=== PATIENT | male | born 1975 | race Caucasian/White ===

== ENCOUNTER → 2022-04-11 13:48 | Outpatient (BNVA) | payer SELFPAY | PROVIDERS: Family Provider Nurse Practitioner; PCP Nurse Practitioner; Referring Provider Dermatology; Visit Provider Podiatrist Foot & Ankle Surgery | DX: M79.672 Pain in left foot (principal) | CPT/HCPCS: 73630 ==

== ENCOUNTER 2022-08-26 19:24 | Observation (INO) | payer SELFPAY ==
[2022-08-26 19:40] VITALS: BP 124/75; PULSE 114; RESP 19; TEMP 37.4; O2SAT 98; BMI 32.5
--- NOTE | 2022-08-26 20:11 | USR_ITS ---
PROCEDURE INFORMATION: Exam: US Duplex Left Lower Extremity Veins, Limited Exam date and time: 08/26/2022 8:30 PM Age: 46 years old Clinical indication: Swelling (edema) of limb; Lower extremity, left; Patient HX: 1 week with leg swelling and pain; Additional info: Redness, swelling left leg with calf pain TECHNIQUE: Imaging protocol: Real-time Duplex ultrasound of the Left Lower Extremity with 2-D olivas scale, color Doppler flow and spectral waveform analysis with image documentation. Limited exam focused on the left lower extremity veins. COMPARISON: CR XR foot LT min 3V* [id number] 04/11/2022 1:48 PM FINDINGS: Left deep veins: Deep venous thrombosis is seen in the left superficial femoral vein, popliteal vein and peroneal trunk Left superficial veins: Unremarkable. Saphenofemoral junction is patent without thrombus. Soft tissues: Unremarkable. US/[place] [id number] IMPRESSION: Deep venous thrombosis is seen in the left superficial femoral vein, popliteal vein and peroneal trunk
--- NOTE | 2022-08-26 20:47 | CTR_ITS ---
PROCEDURE INFORMATION: Exam: CTA Chest With Contrast Exam date and time: 08/26/2022 9:39 PM Age: 46 years old Clinical indication: Shortness of breath; Additional info: Positive for lower ext dvt, chest pain TECHNIQUE: Imaging protocol: Computed tomographic angiography of the chest with contrast. 3D rendering (Not supervised by radiologist): MIP and/or 3D reconstructed images were created by the technologist. Radiation optimization: All CT scans at this facility use at least one of these dose optimization techniques: automated exposure control; mA and/or kV adjustment per patient size (includes targeted exams where dose is matched to clinical indication); or iterative reconstruction. Contrast material: OMNIPAQUE 350; Contrast volume: 451.03 ml; Contrast route: INTRAVENOUS (IV); COMPARISON: No relevant prior studies available. RADIATION DOSE METRICS: Total DLP (mGy-cm): 451.03 FINDINGS: Pulmonary arteries: Multiple bilateral pulmonary emboli with a degree of right heart strain given an RV to LV ratio of 1.1. Aorta: Unremarkable. No aortic aneurysm. No aortic dissection. Lungs: Patchy bilateral subsegmental dependent atelectasis versus minimal infiltrate. Pleural spaces: Unremarkable. No pneumothorax. No pleural effusion. Heart: See Pulmonary arteries finding. Lymph nodes: Multiple prominent subcentimeter mediastinal lymph nodes, nonspecific. Bones/joints: Unremarkable. No acute fracture. Soft tissues: Unremarkable. CT/CT angio chest PE protcl [id number] IMPRESSION: 1. Multiple bilateral pulmonary emboli with a degree of right heart strain given an RV to LV ratio of 1.1. 2. Patchy bilateral subsegmental dependent atelectasis versus minimal infiltrate. 3. Multiple prominent subcentimeter mediastinal lymph nodes, nonspecific.
--- NOTE | 2022-08-26 21:07 | ECG_ITS ---
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 Measurements Intervals [place] Rate: 99 P: 71 AR: 134 QRS: 49 QRSD: 90 T: 71 QT: 293 QTc: 377 Interpretive Statements SINUS RHYTHM POSSIBLE ANTERIOR MYOCARDIAL INFARCTION , OF INDETERMINATE AGE [30 ms Q WAVE IN V3/V4, OR R < 0.2 mV IN V4] INTERPRETATION BASED ON A DEFAULT AGE OF 40 YEARS No previous ECG available for comparison Electronically Signed On 08-26-2022 21:41:27 CDT by Leeann Roman M.D. [id number]
[2022-08-26 21:13] VITALS: BP 128/74; PULSE 104; RESP 15; O2SAT 97
[2022-08-26 21:20] LABS: Basophils # 0.1 10^3/uL (0.0-0.1); Basophils % 0.6 %; Eosinophils # 0.1 10^3/uL (0.0-0.8); Hematocrit 47.4 % (42.0-52.0); Hemoglobin 15.8 g/dL (11.7-16.6); Lymphocytes # 1.3 10^3/uL (0.8-4.8); Lymphocytes % 15.4 %; Mean Corpuscular HGB Conc 33.3 g/dL (30.0-36.0); Mean Corpuscular Hemoglobin 28.8 pg (28.0-34.0); Mean Corpuscular Volume 86.3 fl (80-94); Mean Platelet Volume 9.7 fL (7.4-10.4); Monocytes # 1.4 10^3/uL (0.2-0.9); Monocytes % 16.8 %; Neutrophils # 5.48 10^3/uL (1.8-7.7); Nucleated Red Blood Cells % 0 %; Platelet Count 239 10^3/cmm (130-400); Red Blood Count 5.49 10^6/uL (4.1-5.3); Red Cell Distribution Width 12.5 % (12.1-15.1); White Blood Count 8.3 10^3/uL (4.0-10.0)
[2022-08-26 21:34] LABS: INR 0.99 (0.8-1.2)
[2022-08-26 21:35] LABS: Partial Thromboplastin Time 26.7 SECONDS (23.9-36.7)
[2022-08-26] MEDS: iohexol 350 mg/mL 100 mL Btl IV (21:37)
[2022-08-26 21:41] LABS: Alanine Aminotransferase 39 U/L (0-41); Albumin Level 3.8 g/dL (3.5-5.2); Alkaline Phosphatase 89 U/L (40-130); Anion Gap 16.3 (5-19); Aspartate Amino Transferase 27 U/L (0-40); Blood Urea Nitrogen 15 mg/dL (6-20); C Reactive Protein 57.7 mg/L (0.0-4.9); Calcium 8.9 mg/dL (8.5-10.5); Carbon Dioxide 25 mmol/L (22-29); Chloride 97 mmol/L (98-107); Glomerular Filtration Rate 65.5 mL/min (90-130); Glucose 95 mg/dL (65-115); Osmolality Calculated 279 mOsm/kg (285-295); Potassium 4.3 mmol/L (3.5-5.1); Sodium 134 mmol/L (136-145); Total Bilirubin 0.4 mg/dL (0.15-1.2); Total Protein 7.8 g/dL (6.6-8.7)
[2022-08-26 21:42] LABS: Troponin(5th) Baseline 9 ng/L (0-15)
--- NOTE | 2022-08-26 22:16 | W.ED.EXTPRO ---
HPI - Extremity Problem General: Chief complaint: Extremity Problem,Nontraumatic Stated complaint: Fever, Left leg pain Time Seen by Provider: 08/26/22 21:09 History of Present Illness: 46-year-old male presenting today with left lower extremity pain and edema. Patient notes onset of symptoms 3 days ago. Symptoms are getting gradually worse. Began to have chest pain today. Chest pain is worse with deep inspiration. Not on blood thinners. No prior history of pulmonary embolism. No recent travel recent surgeries. No recent illnesses. He denies fevers or chills. He denies nausea or vomiting. He takes no medications. Review of Systems General: Reports: 10 or more systems reviewed and unremarkable except in HPI and below PFSH ED PFSH: Social History Smoking and tobacco status: current every day smoker Physical Exam Const: COMMON NORMALS: no acute distress, patient oriented x3 and alert GENERAL APPEARANCE: cooperative ORIENTATION/CONSCIOUSNESS: Yes awake, Yes oriented to person, Yes oriented to place and Yes oriented to time HENMT: COMMON NORMALS: normocephalic, atraumatic, external ears normal, Normal external nose present and moist oral mucous membranes HEAD & SCALP: normal to inspection, normocephalic and atraumatic NOSE: Normal external nose present GENERAL EAR: hearing grossly impaired EXTERNAL EAR: Yes external ears normal Eye: COMMON NORMALS: Equal, round and reactive pupils present, EOMs intact bilaterally, conjunctivae normal and no scleral icterus GENERAL EYE: appearance normal, both eyes and all related structures EYELID: eyelids normal CONJUNCTIVA: Yes conjunctivae normal SCLERA: sclerae normal PUPIL: Yes Equal, round and reactive pupils present Neck/C-Spine: COMMON NORMALS: full ROM, supple and no JVD GENERAL: Yes normal visual inspection Lymph: LYMPHATIC: no lymphadenopathy noted and no lymphedema noted Chest: COMMONS NORMALS: normal inspection of the chest Resp: COMMON NORMALS: normal respiratory effort, No retractions and No use of accessory muscles Cardio: COMMON NORMALS: no JVD, regular rate and regular rhythm RATE: regular rate RHYTHM: regular rhythm GI: COMMON NORMALS: Normal to inspection, nondistended, normoactive bowel sounds present : COMMON NORMALS: Yes no CVA tenderness BLADDER/KIDNEY EXAM: Yes no CVA tenderness Back/Pelvis: COMMON NORMALS: no CVA tenderness and thoracic and lumbar spine normal to inspection Extremity: COMMON NORMALS: normal to inspection, full ROM and capillary refill normal GENERAL: Yes normal exam except as noted Neuro: COMMON NORMALS: patient oriented x3, CN's II-XII intact bilaterally, moves all extremities, no focal motor deficits, no sensory deficits noted and gait normal SENSORIUM/ORIENTATION: Yes alert, Yes oriented to person, Yes oriented to place and Yes oriented to time Psych: COMMON NORMALS: mental status grossly normal, Normal thought process present, cooperative and normal affect THOUGHT PROCESS: Normal thought process present Skin: COMMON NORMALS: no rashes or lesions noted and no wounds GENERAL SKIN EXAM: no rashes or lesions noted Course Vital Signs: Vital signs: Vital Signs Temperature 99.4 F 08/26/22 19:40 Pulse Rate 104 H 08/26/22 21:13 Respiratory Rate 15 08/26/22 21:13 Blood Pressure 128/74 08/26/22 21:13 Pulse Oximetry 97 08/26/22 21:13 Oxygen Delivery Me thod 08/26/22 19:40 MDM - Extremity (Nontraumatic) Medical Decision Making 46-year-old male presenting today with lower extremity pain and swelling. Evidence of DVT. Proceed with CTA which demonstrates bilateral pulmonary embolisms with mild ventricular heart strain. Patient started on heparin. Will admit to the hospital. Lab Data : 08/26/22 21:15 08/26/22 21:15 Radiology Impressions Venous Duplex 08/26/22 20:11 IMPRESSION: Deep venous thrombosis is seen in the left superficial femoral vein, popliteal vein and peroneal trunk ADDENDUM: 08/26/222115 THIS REPORT CONTAINS FINDINGS THAT MAY BE CRITICAL TO PATIENT CARE. The findings were verbally communicated via telephone conference with RANDY NUNEZ at 9:14 PM CDT on 08/26/2022. The findings were acknowledged and understood. Chest CTA 08/26/22 20:47 IMPRESSION: 1. Multiple bilateral pulmonary emboli with a degree of right heart strain given an RV to LV ratio of 1.1. 2. Patchy bilateral subsegmental dependent atelectasis versus minimal infiltrate. 3. Multiple prominent subcentimeter mediastinal lymph nodes, nonspecific. Laboratory Results WBC 8.3 10^3/uL (4.0-10.0) 08/26/22 21:15 RBC 5.49 10^6/uL (4.1-5.3) H 08/26/22 21:15 Hgb 15.8 g/dL (11.7-16.6) 08/26/22 21:15 Hct 47.4 % (42.0-52.0) 08/26/22 21:15 MCV 86.3 fl (80-94) 08/26/22 21:15 MCH 28.8 pg (28.0-34.0) 08/26/22 21:15 MCHC 33.3 g/dL (30.0-36.0) 08/26/22 21:15 RDW 12.5 % (12.1-15.1) 08/26/22 21:15 Plt Count 239 10^3/cmm (130-400) 08/26/22 21:15 MPV 9.7 fL (7.4-10.4) 08/26/22 21:15 Neut % (Auto) 66.0 % 08/26/22 21:15 Lymph % (Auto) 15.4 % 08/26/22 21:15 Blount % (Auto) 16.8 % 08/26/22 21:15 Eos % (Auto) 1.0 % 08/26/22 21:15 Baso % (Auto) 0.6 % 08/26/22 21:15 Neut # (Auto) 5.48 10^3/uL (1.8-7.7) 08/26/22 21:15 Lymph # (Auto) 1.3 10^3/uL (0.8-4.8) 08/26/22 21:15 Blount # (Auto) 1.4 10^3/uL (0.2-0.9) H 08/26/22 21:15 Eos # (Auto) 0.1 10^3/uL (0.0-0.8) 08/26/22 21:15 Baso # (Auto) 0.1 10^3/uL (0.0-0.1) 08/26/22 21:15 Nucleated RBC % (auto) 0 % 08/26/22 21:15 Nucleated RBCs # 0.0 /100WBC 08/26/22 21:15 PT 13.40 SECONDS (12.1-14.9) 08/26/22 21:15 INR 0.99 (0.8-1.2) 08/26/22 21:15 APTT 26.7 SECONDS (23.9-36.7) 08/26/22 21:15 Sodium 134 mmol/L (136-145) L 08/26/22 21:15 Potassium 4.3 mmol/L (3.5-5.1) 08/26/22 21:15 Chloride 97 mmol/L (98-107) L 08/26/22 21:15 Carbon Dioxide 25 mmol/L (22-29) 08/26/22 21:15 Anion Gap 16.3 (5-19) 08/26/22 21:15 BUN 15 mg/dL (6-20) 08/26/22 21:15 Creatinine 1.2 mg/dL (0.7-1.2) 08/26/22 21:15 GFR Calculation 65.5 mL/min (90-130) L 08/26/22 21:15 Glucose 95 mg/dL (65-115) 08/26/22 21:15 Calculated Osmolality 279 mOsm/kg (285-295) L 08/26/22 21:15 Calcium 8.9 mg/dL (8.5-10.5) 08/26/22 21:15 Total Bilirubin 0.4 mg/dL (0.15-1.2) 08/26/22 21:15 AST 27 U/L (0-40) 08/26/22 21:15 ALT 39 U/L (0-41) 08/26/22 21:15 Alkaline Phosphatase 89 U/L (40-130) 08/26/22 21:15 Troponin T Baseline 9 ng/L (0-15) 08/26/22 21:15 C-Reactive Protein 57.7 mg/L (0.0-4.9) H 08/26/22 21:15 Total Protein 7.8 g/dL (6.6-8.7) 08/26/22 21:15 Albumin 3.8 g/dL (3.5-5.2) 08/26/22 21:15 Globulin 4.0 g/dL (1.3-4.6) 08/26/22 21:15 Discharge Plan Discharge Patient Disposition: Admitted As Inpatient Clinical Impression: Pulmonary embolism, DVT (deep venous thrombosis) Condition: Stable Prescriptions: No Action No Known Home Medications Referrals: Ana Paula,Glennette R, PUSH BUTTON SWITCH ASSEMBLER-C [Primary Care Provider] - Coding Level of Care Code ED Store Operations Associate for Pedro Luis Mckeon
--- NOTE | 2022-08-26 22:32 | P.HP_ITS ---
Providers/Chief Complaint Primary Care Provider: SLOANE HoustonC Chief Complaint: Fever, Left leg pain History of Present Illness Very pleasant 46-year-old gentleman without significant past history apart from Planter fasciitis a while back, presented due to having some swelling, discomfort in his left lower extremity that was progressing up towards the thigh, and also some chest discomfort, cough, dyspnea, palpitations, and was starting to feel overall more unwell, came in for evaluation. In ER with sinus tachycardia 105 bpm, saturating well on room air, blood pressure 120/74, he is found to have DVT in left superficial femoral, popliteal and peroneal trunk of left lower extremity. CTA chest with multiple bilateral PE with a degree of right heart strain suggested by CT imaging RV to LV ratio 1.1. Patchy bilateral subsegmental dependent Diane versus minimal infiltrate. Multiple prominent subcentimeter mediastinal lymph nodes, nonspecific. He is started on heparin drip. Review of Systems Const: Reports: malaise; Denies: body aches Eyes: Denies: change in vision, eye discomfort or eye redness ENMT: Denies: throat pain, oral sores or ear or mastoid pain Card: Denies: chest pain, edema, pre-syncope or dyspnea on exertion Resp: Reports: dyspnea, non-productive cough and pain on inspiration; Denies: productive cough or change in phlegm color GI: Denies: abdominal pain, nausea, vomiting, diarrhea, constipation, hematochezia or melena : Denies: flank pain, difficulty urinating, urinary frequency or hematuria Musc: Reports: extremity pain and extremity swelling; Denies: back pain, joint swelling or joint redness Skin/Breast: Denies: rash or new lesions Neuro: Denies: headache(s), numbness in extremities, weakness in extremities, dizziness, confusion or seizure-like activity Endo: Denies: polyuria or polydipsia Porfirio/Lymph: Denies: easy bleeding or tender lymph nodes All/Imm: Denies: urticaria or tongue swelling Medications/Allergies Home Medications Medication Instructions Recorded Confirmed Last Taken Type No Known Home Medications 04/11/22 05/23/22 Unknown History Allergies Allergy/AdvReac Type Severity Reaction Status Date / Time No Known Allergies Allergy Verified 05/23/22 14:32 PFSH Acute PFSH: Medical History Plantar fasciitis Smoking addiction Surgical History No history of previous surgery Family History Father Diabetes Mother Thyroid disease Social History Smoking and tobacco status: current every day smoker cigarettes Packs smoked per day: 1 Alcohol intake: never Substance/Drug Use: never Lives independently: Yes Marital status: Single Current occupational status: employed Vitals/I&O/Wt Last Vital Signs Temp 99.4 F 08/26/22 19:40 Pulse 104 H 08/26/22 21:13 Resp 15 08/26/22 21:13 BP 128/74 08/26/22 21:13 Pulse Ox 97 08/26/22 21:13 O2 Del Method 08/26/22 19:40 Weight last 48 hrs Weight 105.687 kg Physical Exam Narrative: Accompanied by family. Const: COMMON NORMALS: patient oriented x3 and alert GENERAL APPEARANCE: cooperative ORIENTATION/CONSCIOUSNESS: Yes awake HENMT: COMMON NORMALS: oropharynx normal Neck/C-Spine: COMMON NORMALS: no JVD Resp: COMMON NORMALS: normal respiratory effort and clear to auscultation bilaterally AUSCULTATION: clear to auscultation bilaterally Cardio: COMMON NORMALS: no JVD, regular rhythm, S1 normal heart sound present, S2 normal heart sound present and No murmurs present (Cardio) RHYTHM: regular rhythm HEART SOUNDS: S1 normal heart sound present and S2 normal heart sound present GI: COMMON NORMALS: Normal to inspection, nondistended, normoactive bowel sounds present, Soft to palpation and non-tender PALPATION: Yes Soft to palpation Extremity: COMMON NORMALS: no joint enlargement and no pedal edema Neuro: COMMON NORMALS: patient oriented x3 and moves all extremities SENSORIUM/ORIENTATION: Yes alert Skin: COMMON NORMALS: no rashes or lesions noted GENERAL SKIN EXAM: no rashes or lesions noted Data : 08/26/22 21:15 08/26/22 21:15 A&P Assessment and plan (1) Pulmonary embolism: New DVT, PE, without prior history, without obvious provoking factor. Reports some low-grade temp, noted 99.4 Fahrenheit in ER, on review of CT noted patchy bilateral subsegmental dependent [place] versus minimal infiltrate. Will test for COVID-19. Otherwise no recent immobilization, travel, surgical procedures. No personal or known family history of blood clots, although he is not sure whether his father who has had multiple health issues may have at some point had a clot. He is a smoker and we discussed with him benefit of cessation. Otherwise would benefit from follow-up with hematology on an urgent basis. Currently he is started on heparin drip, continue. Assess TTE Transition to oral anticoagulant at discharge. (2) DVT (deep venous thrombosis): As above (3) Smoking addiction: Discussed with him smoking cessation, especially with noted new otherwise unprovoked blood clots. Nicotine replacement while here. Continue to encourage cessation. Plan States does not have PCP, will request case management to also assist him with finding 1 for follow-up. Attestations Medical Necessity Statement*: Place in observation for assessment of management of new DVT and PE without obvious provoking factor, with possible right heart strain noted by CT, initiation of anticoagulation. Coding Level of Care Code Acute Drive In Theater Attendant for Pedro Luis Mckeon Diagnoses Pulmonary embolism I26.99 DVT (deep venous thrombosis) I82.409 Smoking addiction F17.200
--- NOTE | 2022-08-26 22:56 | ECG_ITS ---
[facility] Test Date: 2022-08-26 Pat Name: Gabo Borjas Department: Room: 262 Gender: Male Hydrology Technician: : 1975 Requested By: Panchito Matson Order Number: [id number] Collado MD: Leeann Roman M.D. Measurements Intervals [place] Rate: 99 P: 65 CO: 126 QRS: 44 QRSD: 90 T: 68 QT: 301 QTc: 386 Interpretive Statements SINUS RHYTHM POSSIBLE ANTERIOR MYOCARDIAL INFARCTION , OF INDETERMINATE AGE [30 ms Q WAVE IN V3/V4, OR R < 0.2 mV IN V4] Compared to ECG 08/26/2022 21:07:19 No significant changes Electronically Signed On 08-27-2022 23:09:45 CDT by Leeann Roman M.D. [id number]
[2022-08-26] MEDS: heparin drip 25,000 UNIT/500 ML PREMIX 29 UNIT IV (23:17)
[2022-08-26 23:30] VITALS: BP 114/60; PULSE 102; RESP 26; O2SAT 97
[2022-08-26 23:48] VITALS: BP 114/60; PULSE 102; RESP 26; O2SAT 97
[2022-08-26 23:50] LABS: SARS Covid-2 Antigen negative (Negative)
[2022-08-26 23:53] LABS: Troponin 5 2HR 14.04 ng/L (0-15)
[2022-08-27] VITALS (10 sets, daily range): BP systolic 111–145; BP diastolic 70–81; PULSE 71–107; RESP 16–18; TEMP 36.7–38.4; O2SAT 95–98; BMI 32.5
[2022-08-27 00:03] LABS: Troponin 5 2HR Delta 5.04 ABS# (0-10)
--- NOTE | 2022-08-27 00:09 | USCV_ITS ---
Gabo Borjas Age: 46 Gender: M : 1975 Exam Date: 08/27/2022 00:43 Ordering Phys: Clif Milan MD Technologist: Alma Goetz Exam Location: [facility] [place] Indication: Question of Rt heart strain post dx of PE BP: 128 / 76 HR: 109 Rhythm: Sinus Technical Quality: Adequate MEASUREMENTS (Male / Female) Normal Values 2D ECHO LV Diastolic Diameter PLAX 3.2 cm 4.2 - 5.9 / 3.9 - 5.3 cm LV Systolic Diameter PLAX 1.9 cm LV Chamber Size 2.6 cm IVS Diastolic Thickness 1.0 cm 0.6 - 1.0 / 0.6 - 0.9 cm IVS Systolic Thickness 1.8 cm LVPW Diastolic Thickness 1.2 cm 0.6 - 1.0 / 0.6 - 0.9 cm LVPW Systolic Thickness 1.5 cm RV Chamber Size 3.6 cm LVOT Diameter 2.0 cm LV Ejection Fraction 2D Teich 73.0 % LV Ejection Fraction MOD 2C 57.0 % LV Ejection Fraction 2C AL 58.2 % LA Diameter 3.2 cm LA Width 3.4 cm LA Height 3.4 cm RA Width 3.0 cm RA Height 4.2 cm Aorta at Sinotubular Diameter 2.7 cm IVC Diameter 2.3 cm M-MODE Aortic Annulus Diameter 3.4 cm LA Ao Ratio MM 1.1 MV E Point Septal Separation 0.2 cm DOPPLER AV Peak Velocity 154.0 cm/s LVOT Peak Velocity 139.0 cm/s AV Area Cont Eq vti 3.3 cm squared AV Area Cont Eq pk 2.8 cm squared MV Area PHT 4.3 cm squared Mitral E to A Ratio 1.2 MV E' Velocity 45.5 cm/s Mitral E to MV E' Ratio 6.3 Mitral E to LV E' Lateral Ratio 6.0 Mitral E to LV E' Septal Ratio 6.5 TR Peak Velocity 211.5 cm/s TR Peak Gradient 17.9 mmHg TR Mean Velocity 160.5 cm/s TR Mean Gradient 11.0 mmHg TR Velocity Time Integral 40.7 cm TV Peak E Velocity 72.0 cm/s RV Acceleration Time 0.2 s RV Ejection Time 0.3 s RV AcT/ET 0.5 FINDINGS Left Ventricle Normal left ventricular size, systolic function and wall thickness, with no regional wall motion abnormalities. Left ventricular ejection fraction is estimated at 70 %. Normal diastolic function. Right Ventricle Normal right ventricular size and systolic function. Right ventricular systolic pressure 20 mmHg. Right Atrium Normal right atrial size. Left Atrium Normal left atrial size. Mitral Valve Structurally normal mitral valve. No mitral valve stenosis. Trace mitral valve regurgitation. Aortic Valve Structurally normal trileaflet aortic valve. No aortic valve stenosis. No aortic valve regurgitation. Tricuspid Valve Structurally normal tricuspid valve. No tricuspid valve stenosis. Trace tricuspid valve regurgitation. Pulmonic Valve Pulmonic valve not well visualized. No pulmonary valve stenosis. Trace pulmonary valve regurgitation. Pericardium No pericardial effusion. Aorta Normal size aortic root and proximal ascending aorta. IVC Normal IVC dimension with >50% respiratory change of the inferior vena cava. CONCLUSIONS 1. Normal left ventricular size, systolic function and wall thickness, with no regional wall motion abnormalities. Left ventricular ejection fraction is estimated at 70 %. Normal diastolic function. 2. Normal right ventricular size and systolic function. 3. No significant valvular abnormality. 4. No prior similar studies to compare. Leeann Roman MD (Electronically Signed) Final Date: 27 August 2022 13:08 S
[2022-08-27] MEDS: acetaminophen 325 mg Tablet 650 MG PO ×2 (00:18→18:41)
[2022-08-27 03:18] LABS: Basophils % 0.5 %; Eosinophils # 0.1 10^3/uL (0.0-0.8); Eosinophils % 1.1 %; Hemoglobin 14.7 g/dL (11.7-16.6); Lymphocytes # 1.8 10^3/uL (0.8-4.8); Lymphocytes % 24.6 %; Mean Corpuscular HGB Conc 32.7 g/dL (30.0-36.0); Mean Corpuscular Hemoglobin 28.1 pg (28.0-34.0); Mean Corpuscular Volume 85.9 fl (80-94); Mean Platelet Volume 9.7 fL (7.4-10.4); Monocytes # 1.2 10^3/uL (0.2-0.9); Monocytes % 15.8 %; Neutrophils # 4.22 10^3/uL (1.8-7.7); Neutrophils % 57.7 %; Nucleated Red Blood Cells % 0 %; Platelet Count 222 10^3/cmm (130-400); Red Blood Count 5.24 10^6/uL (4.1-5.3); Red Cell Distribution Width 12.6 % (12.1-15.1); White Blood Count 7.3 10^3/uL (4.0-10.0)
[2022-08-27 03:39] LABS: Alanine Aminotransferase 36 U/L (0-41); Albumin Level 3.5 g/dL (3.5-5.2); Alkaline Phosphatase 82 U/L (40-130); Anion Gap 11.6 (5-19); Aspartate Amino Transferase 26 U/L (0-40); Blood Urea Nitrogen 15 mg/dL (6-20); Calcium 8.7 mg/dL (8.5-10.5); Carbon Dioxide 25 mmol/L (22-29); Chloride 99 mmol/L (98-107); Globulin 3.2 g/dL (1.3-4.6); Glomerular Filtration Rate 80.8 mL/min (90-130); Glucose 105 mg/dL (65-115); Osmolality Calculated 275 mOsm/kg (285-295); Potassium 3.6 mmol/L (3.5-5.1); Sodium 132 mmol/L (136-145); Total Bilirubin 0.2 mg/dL (0.15-1.2); Total Protein 6.7 g/dL (6.6-8.7)
[2022-08-27 03:44] LABS: Troponin 5 6HR 8.92 ng/L (0-15)
[2022-08-27 04:03] LABS: Troponin 5 6HR Delta -0.08 ng/L (0-12)
[2022-08-27 05:34] LABS: Partial Thromboplastin Time 36.6 SECONDS (23.9-36.7)
[2022-08-27] MEDS: heparin 5,000 unit/mL INJ 1 mL IV ×3 (06:03→18:46)
--- NOTE | 2022-08-27 10:45 | PC.CHAP ---
Pastoral Care Encounter/Spiritual Assessment Type of Contact [] Declined account management specialist visit [] Patient/Family/Request visit [] Outpatient visit [] Follow-up visit [] Physician referral [] Code/Alert [x] Routine visit [] Staff referral [] Actively dying [] Patient sleeping [] Family support [] [] Out of room [] Palliative care [] [] Receiving care in room [] Pre-surgical visit [] Trauma [] Long length of stay [] ICU visit [] Other: Relational/Emotional Strength [x] Patient feels connected with others/family/visitors/staff [] Distress [] Loneliness/isolation [] Abandonment Spirituality of Patient [x] Person of Loyda [x] Attends Pentecostal of their [place]oyda [x] Believes in Prayer [] Reads Bible or Moravian materials [] There are Spiritual issues to be addressed Glost Kiln Operator Interventions [x] Prayer [x] Active listening [x] Non-anxious presence [x] Spiritual/emotional support [] Crisis/trauma care [] Spiritual counseling [] Bereavement support [] Provided bereavement packet [] Provided Bible/devotional materials [] Provided toy/stuffed animal, coloring book to patient or family member [] Provided Communion [] Anointing/[place] [] Salvation [x] Completed spiritual assessment [] Other: Impact on Illness or Injury [] Angry [] Fearful [] Anxious [] Often cries [] Exhaustion [] Unable to work [] Unable to attend methodist [] Unable to walk/stand [] Unable to read [] Unable to drive [] Unable to eat/drink [] Unable to sleep [] Unable to be with family [] Patient intubated [] Other: Summary Time spent with patient 10 min
[2022-08-27 12:32] LABS: Partial Thromboplastin Time 41.2 SECONDS (23.9-36.7)
--- NOTE | 2022-08-27 14:03 | P.PN_ITS ---
Subjective Subjective: Patient on heparin drip at this time. Denies any recent weight loss, long road trips or long flight. Denies family history of cancers or coagulopathy. Still has some shortness of breath on ambulation. On room air at this time. Vitals/I&O/Wt Last Vital Signs Temp 98.1 F 08/27/22 12:00 Pulse 91 08/27/22 12:00 Resp 16 08/27/22 12:00 BP 117/72 08/27/22 12:00 Pulse Ox 96 08/27/22 12:00 O2 Del Method 08/27/22 08:28 08/26/22 08/27/22 08/27/22 22:59 06:59 14:59 Intake Total 188.983 / 188.983 Output Total 650 / 650 500 / 500 Balance -461.017 / -461.017 -500 / -500 Weight last 48 hrs Weight 105.687 kg Weight 105.687 kg Physical Exam Narrative: Accompanied by family. Const: COMMON NORMALS: patient oriented x3 and alert GENERAL APPEARANCE: cooperative ORIENTATION/CONSCIOUSNESS: Yes awake HENMT: COMMON NORMALS: oropharynx normal Neck/C-Spine: COMMON NORMALS: no JVD Resp: COMMON NORMALS: normal respiratory effort and clear to auscultation bilaterally AUSCULTATION: clear to auscultation bilaterally Cardio: COMMON NORMALS: no JVD, regular rhythm, S1 normal heart sound present, S2 normal heart sound present and No murmurs present (Cardio) RHYTHM: regular rhythm HEART SOUNDS: S1 normal heart sound present and S2 normal heart sound present GI: COMMON NORMALS: Normal to inspection, nondistended, normoactive bowel sounds present, Soft to palpation and non-tender PALPATION: Yes Soft to palpation Extremity: COMMON NORMALS: no joint enlargement and no pedal edema Neuro: COMMON NORMALS: patient oriented x3 and moves all extremities SENSORIUM/ORIENTATION: Yes alert Skin: COMMON NORMALS: no rashes or lesions noted GENERAL SKIN EXAM: no rashes or lesions noted Data : 08/27/22 03:04 08/27/22 03:04 A&P Assessment and plan (1) Pulmonary embolism: New DVT, PE, without prior history, without obvious provoking factor. Reports some low-grade temp, noted 99.4 Fahrenheit in ER, on review of CT noted patchy bilateral subsegmental dependent Munira versus minimal infiltrate. Will test for COVID-19. Otherwise no recent immobilization, travel, surgical procedures. No personal or known family history of blood clots, although he is not sure whether his father who has had multiple health issues may have at some point had a clot. He is a smoker and we discussed with him benefit of cessation. Otherwise would benefit from follow-up with hematology on an urgent basis. Currently he is started on heparin drip, continue. Transition to oral anticoagulant at discharge. We will probably place patient on Eliquis at discharge. Echo shows normal LVEF 70%. Normal diastolic function. Will check bubble study Will work-up patient for vasculitis. Check urinalysis as well. Patient to follow-up with hematology at discharge. Patient will need hypercoagulability studies at a later time. He has already been given heparin at this point. He will need factor V Leiden, protein C, protein S test. Will defer to hematology at discharge. (2) DVT (deep venous thrombosis): As above (3) Smoking addiction: Discussed with him smoking cessation, especially with noted new otherwise unprovoked blood clots. Nicotine replacement while here. Continue to encourage cessation. Plan States does not have PCP, will request case management to also assist him with finding 1 for follow-up. Attestations Medical Necessity Statement*: Continue heparin drip at this time. Plan to discharge in next 24 to 48 hours. Coding Level of Care Code Acute Mail Messenger Contractor for Pedro Luis Mckeon Diagnoses Pulmonary embolism I26.99 DVT (deep venous thrombosis) I82.409 Smoking addiction F17.200
--- NOTE | 2022-08-27 14:05 | USCV_ITS ---
Gabo Borjas Age: 46 Gender: M : 1975 Exam Date: 08/27/2022 15:55 Ordering Phys: Haylee Simmons MD Technologist: Manuel Sorenson Exam Location: [facility] – [place] Indication: check bubble study BP: / HR: Rhythm: Sinus Technical Quality: Adequate MEASUREMENTS (Male / Female) Normal Values FINDINGS Left Ventricle Normal LV size and ejection fraction. Right Ventricle Normal size and ejection fraction Right Atrium Normal size Left Atrium Normal size Mitral Valve Aortic Valve Tricuspid Valve Pulmonic Valve Pericardium Aorta IVC CONCLUSIONS Normal Chamber sizes. Normal LV ejection fraction. No evidence of any right to left shunt Technically somewhat limited study Dr Jesus Pedroza MD FACC (Electronically Signed) Final Date: 28 August 2022 08:25 S
[2022-08-27] MEDS: heparin drip 25,000 UNIT/500 ML PREMIX 36 UNIT IV (15:46)
[2022-08-27 17:20] LABS: Platelet Count 235 10^3/cmm (130-400)
[2022-08-27 17:30] LABS: Fibrinogen 722 mg/dL (174-498); INR 1.02 (0.8-1.2)
[2022-08-27] MEDS: morphine 4 mg/mL SDV 1 mL 2 MG IVP (19:34)
[2022-08-27] MEDS: ondansetron 2 mg/ML SDV 2 mL 4 MG IVP (20:50)
[2022-08-27 23:56] LABS: Bilirubin Urine Neg (Negative); Blood Urine Neg (Negative); Glucose Urine UA Norm (Normal); Ketones Urine Negative (Negative); Leukocyte Esterase Urine Negative (Negative); Nitrate Urine Negative (Negative); Protein Urine Neg (Negative); Urine Appearance Clear (CLEAR); Urine Color Yellow (Yellow); Urobilinogen Urine Norm (Negative); pH Urine 5 (5-7)
[2022-08-27 23:57] LABS: Add Urine Culture? No; Add Urine Microscopic? YES; Amorphous Sediment Urine 1+ /hpf
[2022-08-28] VITALS: BP 150/84; PULSE 97; RESP 17; TEMP 37.6; O2SAT 97
[2022-08-28 00:23] LABS: Partial Thromboplastin Time 49.6 SECONDS (23.9-36.7)
[2022-08-28] MEDS: heparin 5,000 unit/mL INJ 1 mL IV ×2 (00:37→07:49)
--- NOTE | 2022-08-28 01:49 | PC.NURSE ---
@[address] Winters due to Heparin drip is calculated to run at 38ml/hr and pump is set to infuse no greater than 36ml/hr, pt. PTT was 52.0 @ 1801 and 6 hours later it is 49.6, Dr. Winters running calculation while on phone with this nurse, nurse was instructed to call pharmacy to determine if there is a maximum rate set for Heparin drip, pharmacy answered I don't know , nurse called house sup and was informed that this has occured in the past and as far as she was aware we do not have a limit rate as long as ordered by physician, Dr. Winters informed and oreder to run Hep drip at 38 ml/hr due to pt needed higher rate due to decreasing PTT.
[2022-08-28 04:00] VITALS: BP 147/85; PULSE 91; RESP 16; TEMP 36.9; O2SAT 92
[2022-08-28] MEDS: acetaminophen 325 mg Tablet 650 MG PO (05:12)
[2022-08-28] MEDS: heparin drip 25,000 UNIT/500 ML PREMIX 38 UNIT IV (05:14)
[2022-08-28 06:00] VITALS: PULSE 87
[2022-08-28 06:33] VITALS: RESP 20
[2022-08-28] MEDS: morphine 4 mg/mL SDV 1 mL 2 MG IVP (06:33)
[2022-08-28 07:03] LABS: Basophils # 0.1 10^3/uL (0.0-0.1); Basophils % 0.6 %; Eosinophils # 0.3 10^3/uL (0.0-0.8); Eosinophils % 3.6 %; Hematocrit 44.4 % (42.0-52.0); Hemoglobin 14.8 g/dL (11.7-16.6); Lymphocytes # 1.7 10^3/uL (0.8-4.8); Lymphocytes % 20.3 %; Mean Corpuscular HGB Conc 33.3 g/dL (30.0-36.0); Mean Corpuscular Hemoglobin 28.8 pg (28.0-34.0); Mean Corpuscular Volume 86.5 fl (80-94); Mean Platelet Volume 9.9 fL (7.4-10.4); Monocytes % 12.5 %; Neutrophils % 62.8 %; Nucleated Red Blood Cells % 0 %; Platelet Count 268 10^3/cmm (130-400); Red Blood Count 5.13 10^6/uL (4.1-5.3); Red Cell Distribution Width 12.5 % (12.1-15.1); White Blood Count 8.1 10^3/uL (4.0-10.0)
[2022-08-28 07:15] LABS: Partial Thromboplastin Time 48.9 SECONDS (23.9-36.7)
[2022-08-28 07:29] LABS: Alanine Aminotransferase 42 U/L (0-41); Albumin Level 3.3 g/dL (3.5-5.2); Alkaline Phosphatase 79 U/L (40-130); Anion Gap 16.2 (5-19); Aspartate Amino Transferase 23 U/L (0-40); Blood Urea Nitrogen 12 mg/dL (6-20); Calcium 8.6 mg/dL (8.5-10.5); Carbon Dioxide 23 mmol/L (22-29); Chloride 100 mmol/L (98-107); Globulin 3.8 g/dL (1.3-4.6); Glomerular Filtration Rate 91.3 mL/min (90-130); Glucose 121 mg/dL (65-115); Osmolality Calculated 281 mOsm/kg (285-295); Potassium 4.2 mmol/L (3.5-5.1); Sodium 135 mmol/L (136-145); Total Bilirubin 0.2 mg/dL (0.15-1.2); Total Protein 7.1 g/dL (6.6-8.7)
[2022-08-28 07:33] VITALS: BP 131/79; PULSE 90; RESP 16; TEMP 36.8; O2SAT 93
--- NOTE | 2022-08-28 11:09 | PM.DCS ---
Discharge Providers Date of Admission: 08/26/22 22:20 Date of Discharge: August 28, 2022 Attending Provider at Admission: Clif Milan Attending Provider at Discharge: Haylee Simmons MD Primary Care Provider: MAYURI Houston Diagnoses at Discharge Discharge Diagnosis (1) Pulmonary embolism: Status: Acute (2) DVT (deep venous thrombosis): Status: Acute (3) Smoking addiction: Status: Deleted Reason for Visit Reason for Visit: Fever, Left leg pain Brief History: As per Dr. Armendariz Very pleasant 46-year-old gentleman without significant past history apart from Planter fasciitis a while back, presented due to having some swelling, discomfort in his left lower extremity that was progressing up towards the thigh, and also some chest discomfort, cough, dyspnea, palpitations, and was starting to feel overall more unwell, came in for evaluation.? In ER with sinus tachycardia 105 bpm, saturating well on room air, blood pressure 120/74, he is found to have DVT in left superficial femoral, popliteal and peroneal trunk of left lower extremity.? CTA chest with multiple bilateral PE with a degree of right heart strain suggested by CT imaging RV to LV ratio 1.1.? Patchy bilateral subsegmental dependent Diane versus minimal infiltrate.? Multiple prominent subcentimeter mediastinal lymph nodes, nonspecific.? He is started on heparin drip. Hospital Course Hospital Course -Presented to Ed with progressing leg pain and chest discomfort. ?-CTA 08/26 showed multiple bilateral PE?s and right heart strain. Also multiple prominent subcentimeter LN?s. ?-[place] US 08/26 showed DVT seen in left superficial femoral vein, popliteal vein and peroneal trunk. ?-Was started on heparin drip immediately and transitioned to Eliqus upon discharge. ?-No known Fx of bleeding disorders/PE/DVT, recent ravel, immobilization, surgical procedures, COVID. Pt is a tobacco user but otherwise no causative factors identified. ?-ECHO showed normal LVEF of 70%, normal diastolic function. Bubble study negative. ?-negative PAMELA or ANCA screen. ?-referral sent to Dr. Perera upon discharge ?-Significant Fx of CAD with coronary bypass surgery and multiple coronary stents in father in his 50's and mother had CVA with vascular dementia starting in 50's. ?-No known Hx of vasculitis, bleeding disorders or Cancers in family Patient discharged home in stable condition to follow-up with his primary care doctor and Dr. Perera at discharge. I talked to his primary care doctor Dr. Gupta and updated him on the phone regarding the patient. Physical Exam Narrative: Accompanied by family. Const: COMMON NORMALS: patient oriented x3 and alert GENERAL APPEARANCE: cooperative ORIENTATION/CONSCIOUSNESS: Yes awake HENMT: COMMON NORMALS: oropharynx normal Neck/C-Spine: COMMON NORMALS: no JVD Resp: COMMON NORMALS: normal respiratory effort and clear to auscultation bilaterally AUSCULTATION: clear to auscultation bilaterally Cardio: COMMON NORMALS: no JVD, regular rhythm, S1 normal heart sound present, S2 normal heart sound present and No murmurs present (Cardio) RHYTHM: regular rhythm HEART SOUNDS: S1 normal heart sound present and S2 normal heart sound present GI: COMMON NORMALS: Normal to inspection, nondistended, normoactive bowel sounds present, Soft to palpation and non-tender PALPATION: Yes Soft to palpation Extremity: COMMON NORMALS: no joint enlargement and no pedal edema Neuro: COMMON NORMALS: patient oriented x3 and moves all extremities SENSORIUM/ORIENTATION: Yes alert Skin: COMMON NORMALS: no rashes or lesions noted GENERAL SKIN EXAM: no rashes or lesions noted Discharge Data Studies Completed and Pending Completed Studies During Hospitalization Category Date Time Status CTA chest [CT angio chest PE protcl [id number]] Stat Cat Scan 08/26/22 20:47 Completed CV. echo complete* [id number] Stat Ultrasound 08/27/22 00:09 Completed CV. echo lmt wo/w bubble [id number] Routine Ultrasound 08/27/22 14:05 Completed US venous duplex lower extremity LT [CV venous duplex Ultrasound 08/26/22 20:11 [place] [id number]] Stat Pending at discharge Category Date Time Status PAMELA Screen w/ Reflex Routine Lab 08/27/22 14:45 Received ANCA [Anti-Neutrophil Cytoplasmic AB] Routine Lab 08/27/22 14:45 Received Complete Blood Count w/Auto AM LABS Lab 08/29/22 04:00 Ordered Comprehensive Metabolic Panel AM LABS Lab 08/29/22 04:00 Ordered Platelet Count Q2D Lab 08/30/22 04:00 Ordered Radiology Impressions Venous Duplex 08/26/22 20:11 IMPRESSION: Deep venous thrombosis is seen in the left superficial femoral vein, popliteal vein and peroneal trunk ADDENDUM: 08/26/222115 THIS REPORT CONTAINS FINDINGS THAT MAY BE CRITICAL TO PATIENT CARE. The findings were verbally communicated via telephone conference with RANDY NUNEZ at 9:14 PM CDT on 08/26/2022. The findings were acknowledged and understood. Chest CTA 08/26/22 20:47 IMPRESSION: 1. Multiple bilateral pulmonary emboli with a degree of right heart strain given an RV to LV ratio of 1.1. 2. Patchy bilateral subsegmental dependent atelectasis versus minimal infiltrate. 3. Multiple prominent subcentimeter mediastinal lymph nodes, nonspecific. Laboratory Results WBC 8.1 10^3/uL (4.0-10.0) 08/28/22 06:53 RBC 5.13 10^6/uL (4.1-5.3) 08/28/22 06:53 Hgb 14.8 g/dL (11.7-16.6) 08/28/22 06:53 Hct 44.4 % (42.0-52.0) 08/28/22 06:53 MCV 86.5 fl (80-94) 08/28/22 06:53 MCH 28.8 pg (28.0-34.0) 08/28/22 06:53 MCHC 33.3 g/dL (30.0-36.0) 08/28/22 06:53 RDW 12.5 % (12.1-15.1) 08/28/22 06:53 Plt Count 268 10^3/cmm (130-400) 08/28/22 06:53 MPV 9.9 fL (7.4-10.4) 08/28/22 06:53 Neut % (Auto) 62.8 % 08/28/22 06:53 Lymph % (Auto) 20.3 % 08/28/22 06:53 Carbon % (Auto) 12.5 % 08/28/22 06:53 Eos % (Auto) 3.6 % 08/28/22 06:53 Baso % (Auto) 0.6 % 08/28/22 06:53 Neut # (Auto) 5.10 10^3/uL (1.8-7.7) 08/28/22 06:53 Lymph # (Auto) 1.7 10^3/uL (0.8-4.8) 08/28/22 06:53 Carbon # (Auto) 1.0 10^3/uL (0.2-0.9) H 08/28/22 06:53 Eos # (Auto) 0.3 10^3/uL (0.0-0.8) 08/28/22 06:53 Baso # (Auto) 0.1 10^3/uL (0.0-0.1) 08/28/22 06:53 Nucleated RBC % (auto) 0 % 08/28/22 06:53 Nucleated RBCs # 0.0 /100WBC 08/28/22 06:53 PT 13.70 SECONDS (12.1-14.9) 08/27/22 17:08 INR 1.02 (0.8-1.2) 08/27/22 17:08 APTT 48.9 SECONDS (23.9-36.7) H 08/28/22 06:53 Fibrinogen 722 mg/dL (174-498) H 08/27/22 17:08 Sodium 135 mmol/L (136-145) L 08/28/22 06:53 Potassium 4.2 mmol/L (3.5-5.1) 08/28/22 06:53 Chloride 100 mmol/L (98-107) 08/28/22 06:53 Carbon Dioxide 23 mmol/L (22-29) 08/28/22 06:53 Anion Gap 16.2 (5-19) 08/28/22 06:53 BUN 12 mg/dL (6-20) 08/28/22 06:53 Creatinine 0.9 mg/dL (0.7-1.2) 08/28/22 06:53 GFR Calculation 91.3 mL/min (90-130) 08/28/22 06:53 Glucose 121 mg/dL (65-115) H 08/28/22 06:53 Calculated Osmolality 281 mOsm/kg (285-295) L 08/28/22 06:53 Calcium 8.6 mg/dL (8.5-10.5) 08/28/22 06:53 Total Bilirubin 0.2 mg/dL (0.15-1.2) 08/28/22 06:53 AST 23 U/L (0-40) 08/28/22 06:53 ALT 42 U/L (0-41) H 08/28/22 06:53 Alkaline Phosphatase 79 U/L (40-130) 08/28/22 06:53 Troponin T Baseline 9 ng/L (0-15) 08/26/22 21:15 Troponin T 120 Minute 14.04 ng/L (0-15) 08/26/22 23:15 Delta Troponin T 5.04 ABS# (0-10) 08/26/22 23:15 Troponin T Hi Sens 6Hr 8.92 ng/L (0-15) 08/27/22 03:04 Troponin T Hi Sens 6Hr Delta -0.08 ng/L (0-12) L 08/27/22 03:04 C-Reactive Protein 57.7 mg/L (0.0-4.9) H 08/26/22 21:15 Total Protein 7.1 g/dL (6.6-8.7) 08/28/22 06:53 Albumin 3.3 g/dL (3.5-5.2) L 08/28/22 06:53 Globulin 3.8 g/dL (1.3-4.6) 08/28/22 06:53 Urine Color Yellow (Yellow) 08/27/22 23:00 Urine Appearance Clear (CLEAR) 08/27/22 23:00 Urine pH 5 (5-7) 08/27/22 23:00 Ur Specific [place] 1.010 (1.005-1.030) 08/27/22 23:00 Urine Protein Neg (Negative) 08/27/22 23:00 Urine Glucose (UA) Norm (Normal) 08/27/22 23:00 Urine Ketones Negative (Negative) 08/27/22 23:00 Urine Blood Neg (Negative) 08/27/22 23:00 Urine Nitrate Negative (Negative) 08/27/22 23:00 Urine Bilirubin Neg (Negative) 08/27/22 23:00 Urine Urobilinogen Norm mg/dL (Negative) 08/27/22 23:00 Ur Leukocyte Esterase Negative (Negative) 08/27/22 23:00 Urine RBC None /hpf (0-2) 08/27/22 23:00 Urine WBC None /hpf (0-5) 08/27/22 23:00 Ur Squamous Epith Cells None /hpf (0-5) 08/27/22 23:00 Amorphous Sediment 1+ /hpf 08/27/22 23:00 Urine Bacteria None /hpf (NONE) 08/27/22 23:00 SARS-CoV-2 Ag (Rapid) negative (Negative) 08/26/22 23:22 Vitals Last Vital Signs Temp 98.3 F 08/28/22 07:33 Pulse 90 08/28/22 07:33 Resp 16 08/28/22 07:33 BP 131/79 08/28/22 07:33 Pulse Ox 93 08/28/22 07:33 O2 Del Method 08/27/22 20:00 Discharge Plan Discharge Patient Disposition: Home Condition: Stable Prescriptions: New Eliquis DVT-PE Treat 30D Start 5 mg (74 tabs) tablets,dose pack See Rx Instructions .ROUTE .COMPLEX Qty: 74 0RF Rx Instructions: orally per package directions No Action Eliquis 5 mg tablet 5 mg PO BID Qty: 90 1RF Rx Instructions: START AFTER ELIQUIS STARTER PACK COMPLETE. 340b Discharge Orders: Discharge Order (Routine); Ordered 08/28/22 Ordered By: Haylee Simmons Referrals: Omi Perera MD [Hospitalist] - 7-10 days (New DVT/PE unprovoked OZ WILL CALL WITH APPOINTMENT) Clark Villatoro MD [Physician] - 08/31/22 8:45 am Discharge Diet: Regular Discharge Activity: Increase activity as tolerated Patient Instructions: Apixaban (By mouth), Pulmonary Embolism (ED), How to Stop Smoking (GEN), Deep Vein Thrombosis (GEN), Opioid Safety Activity Restrictions/Additional Instructions: Please stay compliant to the Eliquis and do not miss any doses. Please consider smoking cessation. Please follow up with your new primary care doctor this upcoming saturday. I have called him and updated him on your case. Discharge Attestations Time Spent in Discharge Care*: other Quality Metrics Clinical Quality Measures [ Venous Thromboembolism { Contraindication to Overlap Therapy: None; Overlap threrpy ordered; VTE Discharge Education: Education about anticoagulant therapy/Care Notes given; Deep Vein Thrombosis/Pulmonary Embolism Present on Admission: Yes; Contraindication to Pharm VTE Prophylaxis: None; Pharmacological prophylaxis given;}] Coding Level of Care Code Acute Chg FW DC note Exam Comprehensive Diagnoses Pulmonary embolism I26.99 DVT (deep venous thrombosis) I82.409 Smoking addiction F17.200
--- NOTE | 2022-08-28 12:44 | PC.NURSE ---
Patient was questioning dose of Eliquis ordered for d/c as the instructions stated per package direction . I called [facility] pharmacy and verified that the Rx would print correctly. She states that she doesn't have insurance filed for this patient. I verified with the patient he had no insurance and was self pay. Per Danelle with [facility], this medication would cost more out of pocket. I cancelled the Rx with [facility] and called [facility] pharmacy and gave a verbal order on behalf of Dr. Simmons for the Eliquis. Patient is to pick this up prior to leaving the facility. He verbalizes understanding.
[2022-08-28 14:38] LABS: Anti-Nuclear Antibody Screen NEGATIVE (NEGATIVE)
[2022-08-30 14:37] LABS: ANCA Screen NEGATIVE (NEGATIVE)
== END 2022-08-28 13:00 | disposition home or self-care (01) ==
LOC: ER 22:18 → MEDSURG 23:22
PROVIDERS: Nurse Practitioner Family; Admitting Provider Internal Medicine; Emergency Provider Emergency Medicine; PCP Nurse Practitioner; Visit Provider Internal Medicine
DX: I26.99 Other pulmonary embolism without acute cor pulmonale (principal); I82.409 Acute embolism and thrombosis of unspecified deep veins of unspecified lower extremity; F17.210 Nicotine dependence, cigarettes, uncomplicated
CPT/HCPCS: 36415; 71275; 80053; 81001; 84484; 85025; 85049; 85384; 85610; 85730; 86036; 86038; 86140; 87426; 93005; 93306; 93971; 96365; 96366; 99285; C8924; G0378; J1644; J2270; J2405; Q9967

== ENCOUNTER 2022-11-29 12:00 | Outpatient (CLI) | payer OTHER, SELFPAY ==
--- NOTE | 2022-11-29 12:00 | USCV_ITS ---
Gabo Borjas Age: 47 Gender: M : 1975 Exam Date: 11/29/2022 12:22 Ordering Phys: Omi Perera MD Technologist: GLORY [place] [facility] [place]: D[place] HISTORY: PT had US in Aug 2022 that showed DVT from LT FV to LT [place] Trunk. HX OF KNOWN DVT. PT on Eloquis. PROCEDURES: Venous duplex imaging was performed in only the left lower extremity. The following venous structures were evaluated: common femoral vein, profunda vein, proximal portion of the greater saphenous vein, superficial femoral vein, and the popliteal vein. In addition, the posterior tibial and peroneal trunk were evaluated. On the left side, the common femoral, superficial femoral, profunda femoral, popliteal, posterior tibial, greater saphenous veins and the peroneal trunk were identified and interrogated in the standard fashion. FINDINGS: LT FV is still occluded with new collateral seen with good blood flow. Some flow seen in LT FV distally. Otherwise no new DVT seen. 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
== END 2022-11-29 12:01 | disposition home or self-care (01) ==
LOC: RAD 12:01
PROVIDERS: PCP Family Medicine; Visit Provider Internal Medicine Medical Oncology
DX: I82.409 Acute embolism and thrombosis of unspecified deep veins of unspecified lower extremity (principal)
CPT/HCPCS: 93971

== ENCOUNTER 2022-11-30 10:48 | Oncology outpatient (recurring) (ONCR) | payer OTHER, SELFPAY ==
[2022-12-05 07:09] LABS: CARDIOLIPIN AB (IGA) <2.0 APL-U/mL; CARDIOLIPIN AB (IGG) <2.0 GPL-U/mL; CARDIOLIPIN AB (IGM) <2.0 MPL-U/mL
[2022-12-05 18:15] LABS: Beta 2 Glycoprotein IGA <2.0 U/mL (<20.0); Beta 2 Glycoprotein IGG <2.0 U/mL (<20.0); Beta 2 Glycoprotein IGM <2.0 U/mL (<20.0)
== END 2022-12-04 23:59 | disposition home or self-care (01) ==
PROVIDERS: PCP Family Medicine; Visit Provider Internal Medicine Medical Oncology
DX: I26.94 Multiple subsegmental thrombotic pulmonary emboli without acute cor pulmonale (principal); I82.409 Acute embolism and thrombosis of unspecified deep veins of unspecified lower extremity
CPT/HCPCS: 86146; 86147

== ENCOUNTER 2022-12-04 11:22 | Outpatient (CLI) | payer OTHER, SELFPAY ==
[2022-12-04] MEDS: iohexol 350 mg/mL 500 mL Btl (per mL) IV ×2 (11:40→12:57)
[2022-12-04] MEDS: iohexol 350 mg/mL 500 mL Btl (per mL) PO (11:40)
--- NOTE | 2022-12-04 15:00 | CT_ITS ---
WS: [id number] CTA CHEST WITH ABDOMEN AND PELVIS TECHNIQUE: Contrast enhanced CTA of the chest, with abdomen, and pelvis with coronal and sagittal ref ormatted images and additional MIP Images. CLINICAL INFORMATION: lymphadenopathy, neck mass COMPARISON: CTA chest August 26, 2022 DLP: 1806.[address] scans at [facility] use at least one of these dose optimization techniques: automated e xposure control; mA and/or kV adjustment per patient size (includes targeted exams where dose is matc hed to clinical indication); or iterative reconstruction. FINDINGS: Partially visualized LEFT clavicle appears normal. This will be better evaluated on the [facility] CT neck exam Proximal main pulmonary arteries are normal. Previously described pulmonary emboli have essentially r esolved compared to August 26, 2022. No evidence of new or progressed emboli. New patchy nodular infiltrates in the RIGHT upper lobe have developed since the prior examination. Re commend correlation for pneumonia. Normal caliber thoracic aorta. Prominent RIGHT greater than LEFT h ilar lymph nodes with bronchovascular thickening. Largest RIGHT hilar lymph node measures 12 mm. No a nterior mediastinal lymphadenopathy. No axillary lymphadenopathy. Hepatomegaly with diffuse fatty infiltration liver. Gallbladder is contracted. Normal spleen. Small e sophageal hiatal hernia. Tiny LEFT adrenal nodule likely adenoma measuring 6 mm. RIGHT adrenal gland is normal. Normal pancreatic parenchymal enhancement. Normal portal vein and splenic vein. Normal cecelia al parenchymal enhancement. No hydronephrosis. Normal ureteral excretion is visualized. Sigmoid diver ticulosis. No evidence of acute diverticulitis. Normal appendix in the RIGHT lower quadrant. Normal c aliber abdominal aorta. A few prominent LEFT inguinal lymph nodes the largest measuring 1.6 cm on the LEFT. A few scattered s lightly prominent mesenteric lymph nodes nonspecific but may be reactive. CT/CT angio chest w abd pel w con IMPRESSION: 1. Previously described pulmonary emboli have essentially resolved compared to previous. No new or progressive filling defects. Proximal main pulmonary arter ies are normal. 2. New patchy nodular infiltrates in RIGHT upper lobe. Recommend correlation f or pneumonia and follow-up to resolution. 3. Prominent RIGHT greater than LEFT hilar lymph nodes. Largest measures 1.6 c m on the RIGHT. Mild bronchovascular thickening along the coral. 4. Small esophageal hiatal hernia. 5. Hepatomegaly with diffuse fatty infiltration liver. 6. No periaortic or retroperitoneal lymphadenopathy. A few prominent inguinal lymph nodes nonspecific largest in the LEFT measuring 1.6 cm. 7. Sigmoid diverticulosis. No evidence of acute diverticulitis.
== END 2022-12-04 11:23 | disposition home or self-care (01) ==
PROVIDERS: PCP Family Medicine; Visit Provider Internal Medicine Medical Oncology
DX: R59.1 Generalized enlarged lymph nodes (principal)
CPT/HCPCS: 71275; 74177; Q9967

== ENCOUNTER 2022-12-12 10:59 | Outpatient (CLI) | payer OTHER, SELFPAY ==
--- NOTE | 2022-12-12 11:00 | CT_ITS ---
WS: [id number] CT NECK TECHNIQUE: Contrast-enhanced CT of the neck with coronal and sagittal reformatted images. CLINICAL INFORMATION: mass on left side of neck COMPARISON: None. DLP: 272.[address] scans at [facility] use at least one of these dose optimization techniques: automated e xposure control; mA and/or kV adjustment per patient size (includes targeted exams where dose is matc hed to clinical indication); or iterative reconstruction. FINDINGS: Parotid glands are normal. Normal submandibular glands. Enlarged LEFT greater than RIGHT cervical lym ph nodes. Enlarged LEFT level 2 and jugulodigastric lymph nodes the largest measuring 1.6 x 1.1 x 2.1 cm. Prominent posterior triangle lymph nodes LEFT greater than RIGHT measuring 8 to 9 mm. Lymph node s are nonspecific some of which may be reactive. Occult neoplasm not excluded. Recommend correlation for history of malignancy. PET/CT may be helpful in further evaluation. Straightening with reversal the normal cervical lordosis. Lung apices are well aerated. Mastoid air c ells and paranasal sinuses are well aerated. Normal posterior nasopharynx. Normal parapharyngeal fat. No evidence of supraglottic or glottic mass. Normal subglottic airway. CT/CT neck w con* [id number] IMPRESSION: 1. Enlarged LEFT greater than RIGHT enhancing cervical lymph nodes predominant ly cervical level 2, LEFT jugulodigastric, and posterior triangle more prominen t on the LEFT. Lymph nodes are nonspecific but have a suspicious appearance. 2. Largest lymph node LEFT jugulodigastric measuring 1.6 x 1.1 x 2.1 cm. Recom mend correlation with history of malignancy. Consider further evaluation with P ET/CT. 3. Parotid glands are normal. Normal submandibular glands. 4. Normal posterior nasopharynx. No evidence of supraglottic or glottic mass. 5. No other suspicious findings.
[2022-12-12] MEDS: iohexol 350 mg/mL 500 mL Btl (per mL) IV (11:29)
== END 2022-12-12 11:00 | disposition home or self-care (01) ==
LOC: RAD 10:59
PROVIDERS: PCP Family Medicine; Visit Provider Internal Medicine Medical Oncology
DX: R22.1 Localized swelling, mass and lump, neck (principal)
CPT/HCPCS: 70491; Q9967

== ENCOUNTER 2023-04-23 11:04 | Oncology outpatient (recurring) (ONCR) | payer OTHER, SELFPAY ==
[2023-04-23 11:35] VITALS: BP 138/87; PULSE 86; RESP 18; TEMP 36.6; O2SAT 97
[2023-04-23 12:13] LABS: Basophils # 0.1 10^3/uL (0.0-0.1); Basophils % 0.8 %; Eosinophils # 0.4 10^3/uL (0.0-0.8); Eosinophils % 4.4 %; Hematocrit 47.1 % (42.0-52.0); Hemoglobin 15.4 g/dL (11.7-16.6); Lymphocytes # 1.9 10^3/uL (0.8-4.8); Lymphocytes % 24.3 %; Mean Corpuscular HGB Conc 32.7 g/dL (30.0-36.0); Mean Corpuscular Hemoglobin 28.6 pg (28.0-34.0); Mean Corpuscular Volume 87.5 fl (80-94); Monocytes # 0.9 10^3/uL (0.2-0.9); Monocytes % 10.9 %; Neutrophils # 4.68 10^3/uL (1.8-7.7); Neutrophils % 59.3 %; Nucleated Red Blood Cells % 0 %; Platelet Count 262 10^3/cmm (130-400); Red Blood Count 5.38 10^6/uL (4.1-5.3); Red Cell Distribution Width 13.2 % (12.1-15.1); White Blood Count 7.9 10^3/uL (4.0-10.0)
[2023-04-26 22:54] LABS: Factor 5 Leiden Mutation NEGATIVE
[2023-04-27 04:19] LABS: PROTEIN C, ACTIVITY 111 % normal (70-180)
[2023-04-27 04:59] LABS: Antithrombin III Activity 121 % normal (80-135)
[2023-04-27 17:39] LABS: PROTHROMBIN (FACTOR II) 20210G NEGATIVE
[2023-04-28 14:50] LABS: Protein S Antigen, Total 133 % normal (70-140)
== END 2023-05-03 23:59 | disposition home or self-care (01) ==
PROVIDERS: PCP Family Medicine; Visit Provider Internal Medicine Medical Oncology
DX: I82.409 Acute embolism and thrombosis of unspecified deep veins of unspecified lower extremity (principal)
CPT/HCPCS: 36415; 81241; 85025; 85210; 85300; 85303; 85305

== ENCOUNTER 2023-05-30 16:12 | Outpatient (CLI) | payer OTHER, SELFPAY ==
[2023-05-30] MEDS: iohexol 350 mg/mL 500 mL Btl (per mL) IV (16:58)
[2023-05-30] MEDS: iohexol 350 mg/mL 500 mL Btl (per mL) PO (16:58)
--- NOTE | 2023-05-30 17:00 | CT_ITS ---
WS: [id number] CT CHEST, ABDOMEN AND PELVIS WITH CONTRAST HISTORY: Follow-up lymphadenopathy. TECHNIQUE: Contiguous 5 mm axial imaging performed through the chest, abdomen and pelvis with IV cont rast, oral contrast has been provided. Coronal and sagittal reformats chest. Coronal and sagittal ref ormats through the abdomen and pelvis. All CT scans at [facility] use at least one of these d ose optimization techniques: automated exposure control; mA and/or kV adjustment per patient size (in cludes targeted exams where dose is matched to clinical indication); or iterative reconstruction. CONTRAST: Omnipaque 350; 100 mL IV. DLP: 1279.70 mGy.cm COMPARISON: 12/04/[address]: Lungs are clear. No pulmonary mass or nodule. Previously described opacification in the RIG HT upper lobe has completely resolved. No pericardial or pleural effusion. Normal size aorta. No fill ing defects in the central pulmonary artery. Again noted is indeterminate RIGHT hilar lymph node karen uring up to 14 mm. No new or additional lymph nodes. Abdomen CT: Mild hepatic steatosis and hepatomegaly. No liver lesions. Normal pancreas and spleen. No adrenal mass. Normal gallbladder. No renal obstruction. Stomach is distended with food products and contrast. No small bowel obstruction. Normal appendix. No colonic wall thickening. Several scattered diverticula in the distal sigmoid. No acute diverticuliti s. Pelvic CT: No free fluid or adenopathy. Patent inguinal canals bilaterally. No destructive bone lesions. CT/CT chest abdpel w/*[id number] IMPRESSION: 1. Complete interval resolution RIGHT upper lobe opacification. 2. Persistent, indeterminate RIGHT hilar lymph node measuring 14 mm. Reactive versus neoplastic. 3. No significantly enlarged abdominal or pelvic lymph nodes. 4. Mild sigmoid diverticulosis. 5. Mild hepatic steatosis and hepatomegaly.
== END 2023-05-30 16:13 | disposition home or self-care (01) ==
PROVIDERS: PCP Family Medicine; Visit Provider Internal Medicine Medical Oncology
DX: I26.94 Multiple subsegmental thrombotic pulmonary emboli without acute cor pulmonale (principal); R93.89 Abnormal findings on diagnostic imaging of other specified body structures; I82.402 Acute embolism and thrombosis of unspecified deep veins of left lower extremity
CPT/HCPCS: 71260; 74177; Q9967

== ENCOUNTER → 2024-07-30 15:04 | Outpatient (BNVA) | payer OTHER, SELFPAY | PROVIDERS: PCP Family Medicine; Visit Provider Family Medicine | DX: I10 Essential (primary) hypertension (principal) | CPT/HCPCS: 80053; 80061; 85025 ==

== ENCOUNTER 2025-03-02 08:28 | Day surgery (SDC) | payer OTHER, SELFPAY ==
[2025-03-02 08:36] VITALS: BP 136/79; PULSE 88; RESP 17; TEMP 36.7; O2SAT 97; BMI 30.7
[2025-03-02] MEDS: sodium chloride 0.9% 500 ML 30 ML IV ×2 (08:46→11:05)
--- NOTE | 2025-03-02 09:28 | ANES.PREANE2 ---
Pre-Anesthetic Assessment Height/Weight: Height 1.8 m Weight 99.79 kg Temp Pulse Resp BP Pulse Ox O2 Del Method 98.1 F 88 17 136/79 97 Room Air 03/02/25 08:36 03/02/25 08:36 03/02/25 08:36 03/02/25 08:36 03/02/25 08:36 03/02/25 08:36 Preop Diagnosis: screening Operation Date: 03/02/25 09:30 Proposed Procedures p Colonoscopy 45293, G0121, Z12.11(Not Applicable) - Kit Ag MD Familial anesthetic complications: none Was Beta Matt taken within 24 hours: N/A Was Clonidine taken within 24 hours: N/A Last intake: Intake Last Liquid Date 03/01/25 Last Liquid Time 23:50 Last Solid Date 02/28/25 Last Solid Time 22:00 Social No alcohol and No tobacco Exam alert, oriented x 3, clear to auscultation bilaterally and regular rate & rhythm Airway Submandibular: within normal limits Cervical ROM: within normal limits Mallampati: Class II Dentition: full History/ROS No significant history except as noted and No significant complaints Pulmonary None reported CV/HEM Hypertension and None reported History of blood clots None reported Hepatic None reported GI None reported Metabolic None reported Musc/skel None reported Neuropsych None reported Anesthetic Plan ASA status: 2 Anesthesia: MAC Risk of > 500 ml blood loss (7ml/kg in children): No Medications/Allergies Home Medications ?Medication ?Instructions ?Recorded ?Confirmed ?Last Taken ?Type losartan 50 mg tablet 50 mg PO DAILY 90 days #90 tabs 01/25/25 03/02/25 02/28/25 Rx apixaban 2.5 mg tablet 2.5 mg PO BID #180 tabs 02/18/25 02/24/25 02/28/25 09:00 Rx Allergies Allergy/AdvReac Type Severity Reaction Status Date / Time No Known Allergies Allergy Verified 03/02/25 08:32 Current Medications Generic Name Dose Route Start Last Admin Trade Name Freq PRN Reason Stop Dose Admin Sodium Chloride 500 mls @ 30 mls/hr 03/02/25 08:45 03/02/25 08:46 Sodium Chloride 0.9% IV 03/03/25 01:24 30 mls/hr .[id number] PK Administration PFSH Anesthesia Medical History Plantar fasciitis DVT (deep venous thrombosis) Pulmonary embolism Surgical History No history of previous surgery Family History Father Diabetes CAD (coronary artery disease) coronary bypass, cardiac stents Mother Thyroid disease Dementia Stroke Factor V deficiency Denies family history of Clotting disorder Hyperlipidemia Chronic kidney disease (CKD) Anesthesia complication Bleeding disorder Lung disease Cancer Hypertension Social History Smoking and tobacco/nicotine status: former use of tobacco/nicotine Quit status (tobacco/nicotine): has quit using Former quit date comment: quit 08/25, 35PY Hx Alcohol intake: never Substance/Drug Use: never Adopted: No Caregiver/support person: No Lives independently: Yes Marital status: Single Current occupational status: employed Current gender identity: Male Data Anesthesia Cardiac Studies: Echocardiogram 08/27/22
--- NOTE | 2025-03-02 10:51 | W.PM.OPSUD ---
Surgery/Procedure H&P Update DATE OF PROCEDURE: March 02, 2025 DATE H&P PERFORMED: 02/01/25 H&P UPDATE INFORMATION: I have reviewed H&P completed within last 30 days, I have examined patient prior to procedure and No changes to prior documentation PREOP DIAGNOSIS: screening PLANNED PROCEDURE: Operation Date: 03/02/25 09:30 Proposed Procedures p Colonoscopy 12391, G0121, Z12.11(Not Applicable) - Kit Ag MD
[2025-03-02 11:18] VITALS: BP 138/65; PULSE 92; RESP 20; TEMP 36.4; O2SAT 91
[2025-03-02 11:37] VITALS: BP 128/71; PULSE 85; RESP 16; O2SAT 96
--- NOTE | 2025-03-02 11:45 | ANE.PACU2 ---
Inpatient post-anesthesia follow up: Airway intact: Yes Vital signs: Temperature 97.5 F Pulse Rate 85 Respiratory Rate 16 Blood Pressure 128/71 Pulse Oximetry 96 Oxygen Delivery Me thod Room Air Oxygen Flow Rate Fraction of Inspir ed Oxygen Hydration adequate: Yes Nausea and vomiting: No Pain level: 1 Mental status: Baseline
== END 2025-03-02 11:45 | disposition home or self-care (01) ==
PROVIDERS: PCP Family Medicine; Visit Provider Student in an Organized Health Care Education/Training Program
PROC: 0DJD8ZZ Inspection of Lower Intestinal Tract, Via Natural or Artificial Opening Endoscopic (ICD-10-PCS; CPT 45378; principal; 2025-03-02 09:30)
DX: Z12.11 Encounter for screening for malignant neoplasm of colon (principal); K57.30 Diverticulosis of large intestine without perforation or abscess without bleeding; I10 Essential (primary) hypertension; Z79.01 Long term (current) use of anticoagulants; Z79.899 Other long term (current) drug therapy; Z87.891 Personal history of nicotine dependence; Z86.718 Personal history of other venous thrombosis and embolism; Z86.711 Personal history of pulmonary embolism
CPT/HCPCS: 45378; J2704; J7040